=== PATIENT | female | born 1980 | race Caucasian/White ===

== ENCOUNTER 2020-07-08 14:38 | Emergency (ER) | payer OTHER, SELFPAY ==
--- NOTE | ~2020-07-08 | XR_ITS ---
EXAMINATION: XR chest 1V portable 07/08/2020 15:40 INDICATION: Shortness of breath. Chest palpitations. PROCEDURE: AP portable chest COMPARISON: No prior studies for comparison. FINDINGS: The lungs are clear. The cardiomediastinal silhouette is within normal limits. There are no pleural effusions. There is no pneumothorax suspected. IMPRESSION: 1: NO ACUTE CARDIOPULMONARY DISEASE. Reviewed, dictated and finalized at location A. MAKER APPRENTICE
[2020-07-08 14:41] VITALS: BP 131/94; PULSE 116; RESP 20; TEMP 35.5; O2SAT 100
--- NOTE | 2020-07-08 14:53 | ECG_ITS ---
Measurements Intervals [place] Rate: 93 P: 50 [place]: 117 QRS: 54 QRSD: 97 T: 44 QT: 351 QTc: 437 Interpretive Statements SINUS RHYTHM WITH SHORT [place] INTERVAL BORDERLINE ST ABNORMALITY- ANTEROLAT/INF LEADS BASELINE ARTIFACT- I, II, AVR, AVL, AVF BORDERLINE ECG Electronically Signed On 07-08-2020 15:21:30 [employer]ARDWOOD FINISHER by Clifford Ambriz D.O.
[2020-07-08 15:26] LABS: Basophils Percent Auto 0.4 % (0.2-1.2); Eosinophils Absolute Auto 0.1 K/mm3 (0-0.3); Hemoglobin 15.1 g/dL (12.0-15.0); Immature Granulocyte Absolute 0.03 K/mm3 (0.00-0.031); Immature Granulocyte Percent A 0.3 % (0-0.5); Lymphocytes Absolute Auto 2.58 K/mm3 (0.9-3.2); Lymphocytes Percent Auto 28.4 % (18.3-44.2); Mean Corpuscular HGB Conc 33.6 g/dl (32-36); Mean Corpuscular Hemoglobin 30.5 pg (26-34); Mean Corpuscular Volume 90.9 fl (80-100); Mean Platelet Volume 10.1 fl (7.4-10.4); Monocytes Absolute Auto 0.4 K/mm3 (0.1-0.6); Monocytes Percent Auto 4.4 % (2.6-8.5); Neutrophils Percent Auto 65.5 % (45.5-73.1); Platelet Count Result 291 k/mm3 (150-375); Red Blood Count 4.95 M/mm3 (4.2-5.4); Red Cell Distribution Width 12.2 % (11.5-14.5); White Blood Count 9.1 K/mm3 (4.5-10.0)
[2020-07-08 15:38] LABS: D Dimer 0.33 ug/mL (<0.48)
[2020-07-08 15:40] LABS: Anion Gap 11 mmol/L (8-16); Blood Urea Nitrogen 12 mg/dL (7-17); Calcium 8.9 mg/dL (8.4-10.2); Carbon Dioxide 24 mmol/L (22-30); Chloride 103 mmol/L (98-107); Estimated Glomerular Filt Rate > 60; Glucose 133 mg/dL (65-105); Potassium 3.2 mmol/L (3.4-5.0); Sodium 138 mmol/L (137-145)
[2020-07-08] MEDS: SODIUM CHLORIDE 0.9% IV 1,000 ML 999 ML IV CONT (15:43)
--- NOTE | 2020-07-08 16:11 | ED.GENADULT ---
HPI - General Adult General Chief complaint: Arrhythmia/Palpitations Stated complaint: dizzy Time Seen by Provider: 07/08/20 15:08 Source: patient Mode of arrival: ambulatory Limitations: no limitations History of Present Illness HPI narrative: Patient is a 40-year-old female who presents to emergency department for evaluation of feeling like her throat was tightening became very clammy and anxious just prior to arrival while at work by the time she presents to emergency department patient is feeling much better patient notes that she had had Covid earlier in the month patient states that her Covid symptoms have resolved with which consisted of only congestion patient denies any URI symptoms fever chills nausea vomiting. Patient denies any chest pain lightheadedness dizziness dyspnea. Related Data Allergies Allergy/AdvReac Type Severity Reaction Status Date / Time No Known Allergies Verified 10/05/10 08:50 Review of Systems Review of Systems: All systems reviewed & are unremarkable except as noted in HPI and below PMFSH Family History Family History (Updated 05/16/18 @ 10:08 by DOCTOR UNKNOWN) Sibling Family history of lymphoma Social History Social History Smoking status: Never smoker Alcohol intake: current Exam Narrative: Exam Narrative: GENERAL: Well-appearing, well-nourished, and in no acute distress. HEAD: Normocephalic, atraumatic. EYES: PERRLA and EOMI. ENT: Nares clear, no rhinorrhea or epistaxis. Mucous membranes moist. CHEST: Clear to auscultation. No respiratory distress. No wheezes rales or rhonchi HEART: Regular rate and rhythm. No murmur heard. Normal peripheral pulses. ABDOMEN: Soft, nontender, nondistended EXTREMITIES: Normal range of motion. No edema. SKIN: Warm, dry, no rash. NEURO: No focal deficits. Alert and oriented x3. PSYCH: Normal mood and affect. Course Course Emergency Course: Patient presented with episode of lightheadedness dizziness feeling clammy with her throat tightening upon arrival to emergency department symptoms had largely resolved patient feeling much better in the ER hemodynamically stable ABCs intact patient. Evaluated and felt appropriate for outpatient reevaluation. No high risk changes in the blood work or imaging or EKG today. Vital Signs Vital signs: Vital Signs Temperature 95.9 F L 07/08/20 14:41 Pulse Rate 116 H 07/08/20 14:41 Respiratory Rate 20 07/08/20 14:41 Blood Pressure 131/94 H 07/08/20 14:41 Pulse Oximetry 100 07/08/20 14:41 Temperature 95.9 F L 07/08/20 14:41 Pulse Rate 116 H 07/08/20 14:41 Respiratory Rate 20 07/08/20 14:41 Blood Pressure 131/94 H 07/08/20 14:41 Pulse Oximetry 100 07/08/20 14:41 Medical Decision Making MDM Narrative Medical decision making narrative: Patients EKGs and labs are without significant high risk changes. Cardiac risk factors were reviewed. Patient is felt likely to be low risk for ACS and reasonable for further risk stratification testing as an outpatient. Negative D-dimer PE felt unlikely. no pneumonia or URI symptoms were seen on evaluation today. Patient is felt to be reasonable for continued evaluation as an outpatient. Vital Signs Vital Signs: Vital Signs Temperature 95.9 F L 07/08/20 14:41 Pulse Rate 116 H 07/08/20 14:41 Respiratory Rate 20 07/08/20 14:41 Blood Pressure 131/94 H 07/08/20 14:41 Pulse Oximetry 100 07/08/20 14:41 Temperature 95.9 F L 07/08/20 14:41 Pulse Rate 116 H 07/08/20 14:41 Respiratory Rate 20 07/08/20 14:41 Blood Pressure 131/94 H 07/08/20 14:41 Pulse Oximetry 100 07/08/20 14:41 Lab Data Result diagrams: 07/08/20 15:17 07/08/20 15:17 Labs: Lab Results 07/08/20 07/08/20 07/08/20 Range/Units 15:17 15:17 15:21 WBC 9.1 (4.5-10.0) K/mm3 RBC 4.95 (4.2-5.4) M/mm3 Hgb 15.1 H (12.0-15.0) g/dL Hct 45.0 (37.0
[2020-07-08 16:19] VITALS: BP 119/77; PULSE 78; RESP 17; O2SAT 98
== END 2020-07-08 16:52 | disposition home or self-care (01) ==
PROVIDERS: Emergency Medicine Emergency Medical Services; Emergency Provider Emergency Medicine
DX: R42 Dizziness and giddiness (principal); Z86.19 Personal history of other infectious and parasitic diseases
CPT/HCPCS: 36415; 71045; 80048; 85025; 85380; 93005; 99283; 99284; J7030

== ENCOUNTER 2025-01-28 15:21 | Outpatient (CLI) | payer OTHER, SELFPAY ==
--- NOTE | ~2025-01-28 | MM_ITS ---
EXAMINATION: MM screening wendy BI w yasmin HISTORY: Screening TECHNIQUE: Craniocaudal and mediolateral oblique 3-D tomosynthesis images were obtained and synthetic 2-D images were generated. CAD analysis was submitted and interpreted. COMPARISON: No prior mammogram is available for comparison at this institution. BREAST PARENCHYMAL COMPOSITION: Dense: The breasts are heterogeneously dense, which may obscure small masses FINDINGS: There is no evidence of suspicious mass, calcification, or architectural distortion to sugg est malignancy in either breast. There has been no suspicious interval change. IMPRESSION: 1. No mammographic evidence of malignancy. 2. Recommend routine screening mammography in one year. BI-RADS Category 1: Negative Reviewed, dictated and finalized at location B.
== END 2025-01-28 15:22 | disposition home or self-care (01) ==
LOC: MICIMG 15:22
PROVIDERS: PCP Nurse Practitioner; Visit Provider Nurse Practitioner
DX: Z12.31 Encounter for screening mammogram for malignant neoplasm of breast (principal)
CPT/HCPCS: 77063; 77067

== ENCOUNTER 2025-05-22 01:08 | Day surgery (SDC) | payer OTHER, SELFPAY ==
[2025-05-16 13:21] VITALS: BMI 30.4
[2025-05-22 06:56] VITALS: BP 115/82; PULSE 91; RESP 14; TEMP 36.4; O2SAT 99
--- NOTE | 2025-05-22 07:04 | WPDANESEPPF ---
Anes - Initial Pre Proc Eval Procedure: Operation Date: 05/22/25 08:00 Proposed Procedures p EGD & Screening Colonoscopy - Hank De Oliveira MD Date/Time: 05/22/25 07:04 Surgeon: Hank De Oliveira MD Pre Op Diagnosis: Encounter for screening for malignant neoplasm of Patient Data Age: 45 Gender: F Height: 1.73 m Weight: 88.3 kg Last Vital Signs Temp 36.4 C 05/22/25 06:56 Pulse 91 05/22/25 06:56 Resp 14 05/22/25 06:56 BP 115/82 05/22/25 06:56 Pulse Ox 99 05/22/25 06:56 O2 Del Method Room Air 05/22/25 06:56 Allergies Allergy/AdvReac Type Severity Reaction Status Date / Time No Known Allergies Allergy Verified 05/22/25 06:40 Home Medications ?Medication ?Instructions ?Recorded ?Confirmed ?Type cholecalciferol (vitamin D3) 50 50 mcg PO DAILY #90 tabs 08/08/24 05/22/25 Rx mcg (2,000 unit) tablet L.acidoph,paracasei,rhamnosus 11 1 cap PO DAILY #90 caps 04/03/25 05/22/25 Rx billion cell-theanine 200 mg capsule (Florastor Woman's Probiotic) multivitamin 1 tablet PO DAILY 04/03/25 05/22/25 History vitamin B12 2,500 mcg-folic acid 1 tablet PO DAILY 04/03/25 05/22/25 History 400 mcg disintegrating tablet Patient hx anesthesia problems: none Family hx anesthesia problems: none Results Review: All pre-operative results and documents have been reviewed as part of the pre-operative evaluation. [facility] Past Medical History Medical History Plantar fascia syndrome both feet Vitamin D deficiency History of COVID-19 (~03/2023) 05/2020, 02/2022, 03/2023 Surgical History Surgical History [place] teeth extracted (~07/2023) (normal spontaneous vaginal delivery) (~09/2010) Family History Family History Sibling Family history of lymphoma Social History Social History Smoking status: Never smoker Alcohol intake: current Drinks per week: 3 Substance use: never Substance use type: does not use Do You Feel Safe in your Home?: Yes Lack of Transportation: No Lack of Food: Never True Current Housing: I Have Housing Concerned About Future Housing: No Difficulty Paying Gas/Electric Bills: No Difficulty Paying for Meds: No Currently Unemployed: No Education: Master's Degree or Higher Difficulty w/ Childcare or Family Care: No Living arrangements: with family Additional living arrangements comments: with sp Occupation/Education: occupation Gender identity (if verbalized by the patient): Female Agree to blood products: Yes Anes - Eval Final PreProcedure Day of Procedure 05/22/25 07:04 Patient weight: overweight Heart: regular rate and rhythm Lungs: clear to auscultation Airway: Mallampati scale class II Neurological: alert and oriented Last oral intake: >/= 8 hours ASA classification: II Emergent: no Anesthetic plan: proceed Anesthesia type and monitoring: general GIVS and standard monitoring Results Review: All pre-operative results and documents have been reviewed as part of the pre-operative evaluation. Informed Consent: The patient's anesthetic plan and its attendant risks and benefits were discussed with the patient/family/POA. Questions were solicited and answers provided to the satisfaction of the patient/family/POA.
[2025-05-22] MEDS: LACTATED RINGERS 1,000 ML 150 ML IV CONT (07:06)
[2025-05-22 07:52] LABS: BEDSIDEPREGUCG Negative (Negative)
--- NOTE | 2025-05-22 07:52 | WPDHPUPDATE1 ---
History and Physical Update Update Date/Time: 05/22/25 07:52 History and Physical has been reviewed, including an updated exam of the patient. There are NO changes in the patient's condition. Risks, benefits, and alternatives have been discussed and questions answered. Patient agrees to proceed with procedure.
[2025-05-22] MEDS: BENZOCAINE (*SP) 60 ML SPRAY CAN (HURRICAINE) 1 SPRAY MUCOUS MEM (08:00)
--- NOTE | 2025-05-22 08:06 | S_PTH ---
PATIENT: Elba Riley LOC: [facility] [place]#:[id number] AGE/SX: 45/F ROOM: RE05/22/[address]: Hank De Oliveira MD : 1980 BED: DIS: 05/22/2025 SPEC #: [id number] RECD: 05/22/25 10:16 STATUS: LETICIA ARMENDARIZ #: [id number] JENNIFER: 05/22/25 08:[address]: Hank De Oliveira DEPT: [facility] Surgical RECD BY: Carolyn Churchill ENTERED: 05/22/25 10:16 SP TYPE: Surgical OTHR DR: Trudy hCampion MD Tissues: A - Gastric Biopsy B - Small Bowel Bx C - Colon Polypectomy D - Colon Polypectomy E - Colon Polypectomy Procedures: Hematoxylin and Eosin Stain Gross and Microscopic Level 4
--- NOTE | 2025-05-22 08:08 | SUR.OPER ---
EGD end time: 801, Colonoscopy start time: 806
[2025-05-22 08:18] VITALS: BP 105/72; PULSE 88; RESP 21; O2SAT 97
[2025-05-22 08:28] VITALS: BP 110/70; PULSE 82; RESP 17; O2SAT 97
[2025-05-22 08:38] VITALS: BP 112/78; PULSE 73; RESP 17; O2SAT 100
== END 2025-05-22 08:44 | disposition home or self-care (01) ==
PROVIDERS: PCP Family Medicine; Referring Provider Nurse Practitioner; Visit Provider Internal Medicine Gastroenterology
PROC: 0DJ08ZZ Inspection of Upper Intestinal Tract, Via Natural or Artificial Opening Endoscopic (ICD-10-PCS; CPT 45378; principal; 2025-05-22 08:00)
DX: Z12.11 Encounter for screening for malignant neoplasm of colon (principal); D12.2 Benign neoplasm of ascending colon; D12.0 Benign neoplasm of cecum; D12.5 Benign neoplasm of sigmoid colon; K64.8 Other hemorrhoids; K21.9 Gastro-esophageal reflux disease without esophagitis; E55.9 Vitamin D deficiency, unspecified; Z98.890 Other specified postprocedural states; M72.2 Plantar fascial fibromatosis; Z80.7 Family history of other malignant neoplasms of lymphoid, hematopoietic and related tissues
CPT/HCPCS: 43239; 45385; 88305; J2003; J2704; J7120

== ENCOUNTER 2025-05-27 07:23 | Outpatient (CLI) | payer OTHER, SELFPAY ==
--- NOTE | ~2025-05-27 | NM_ITS ---
EXAMINATION: NM_HEPATWP_NM DATE: 05/27/2025 09:31 INDICATION: Cyclical epigastric pain with nausea COMPARISON: None. TECHNIQUE: 5.2 mCi Tc-99m mebrofenin (Choletec) was administered intravenously. Scintigraphic images of the abdomen were obtained for one hour. 1.8 mcg sincalide (Kinevac) was administered by slow intravenous infusion, and imaging was continued for 30 minutes. Gallbladder ejection fraction was calculated by the technologist. FINDINGS: There is normal clearance of radiotracer from the blood pool. There is homogeneous tracer uptake by the liver. Activity progresses to the gallbladder and bowel. The gallbladder ejection fraction (GBEF) is 80% (normal 10-90%, but most patient with gallbladder dysfunction have GBEF < 35% which does overlap with the normal range). IMPRESSION: 1. Normal hepatobiliary scan Reviewed, dictated and finalized at location A. MBLY DETAILER
== END 2025-05-27 07:24 | disposition home or self-care (01) ==
PROVIDERS: PCP Family Medicine; Visit Provider Nurse Practitioner
DX: R10.13 Epigastric pain (principal)
CPT/HCPCS: 78227; A9537; J2805

== ENCOUNTER 2025-06-02 06:52 | Outpatient (CLI) | payer OTHER, SELFPAY ==
--- NOTE | ~2025-06-02 | US_ITS ---
ULTRASOUND ABDOMEN LIMITED (RIGHT UPPER QUADRANT) Clinical History: epigastric pain/nausea, episodic Comparison: HIDA scan 05/27/2025 Technique: Right upper quadrant sonography Findings: Liver: Normal size. Echogenic. No intrahepatic biliary ductal dilatation. Normal hepatopedal flow main renal vein. Common Duct: Normal caliber. 3 mm. Gallbladder: Tiny stones. No wall thickening. No pericholecystic fluid. Negative sonographic Bailey's sign per technologist report. Pancreas: Unremarkable. IMPRESSION: 1. Gallstones. No cholecystitis. 2. Hepatic steatosis and/or hepatocellular disease. Reviewed, dictated and finalized at location R. [employer]ARD
== END 2025-06-02 06:53 | disposition home or self-care (01) ==
PROVIDERS: PCP Family Medicine; Visit Provider Nurse Practitioner
DX: K80.20 Calculus of gallbladder without cholecystitis without obstruction (principal); K76.9 Liver disease, unspecified
CPT/HCPCS: 76705

== ENCOUNTER 2025-07-08 08:39 | Outpatient (CLI) | payer OTHER, SELFPAY ==
[2025-07-08 09:20] LABS: Alanine Aminotransferase 18 U/L (6-35); Albumin Level 3.8 g/dL (3.5-5.1); Alkaline Phosphatase 55 U/L (38-126); Amylase 96 U/L (30-110); Aspartate Amino Transferase 22 U/L (14-36); Bilirubin,Total 0.5 mg/dL (0.2-1.3); Lipase 63 U/L (23-300); Total Protein 6.7 g/dL (6.3-8.2)
== END 2025-07-08 08:40 | disposition home or self-care (01) ==
LOC: ANHSURGERY 08:41
PROVIDERS: PCP Family Medicine; Visit Provider Surgery
DX: K80.20 Calculus of gallbladder without cholecystitis without obstruction (principal)
CPT/HCPCS: 36415; 80076; 82150; 83690

== ENCOUNTER 2025-07-14 01:46 | Day surgery (SDC) | payer OTHER, SELFPAY ==
[2025-07-07 13:07] VITALS: BMI 28.9
--- NOTE | 2025-07-07 13:13 | PC.NURSE ---
[facility] has started construction of its new state of the art ER which will open Spring 2026. With this, we anticipate parking may be a challenge for some our surgical patients and families. Parking spaces are limited but are available for all Surgical, obstetrics, and ER patients sharing this lot. If you arrive and find you are having a hard time finding a parking space, please note that we understand the challenges, please drive around the hospital and park near Hospital Entrance 1. When you enter this entrance, you can ask a volunteer to direct or take you back to the surgical waiting area to check in. We appreciate everyone?s understanding of these expected challenges while we build for your future. Report to the Outpatient Waiting Room, entrance under the green pavilion located off [address], at time _1130_ on date _[phone]_. Planned Procedure Time: _130pm_.? Time changes happen often and if your time is changed the preop area will call you the afternoon before. - You and your visitor will be asked to self-screen and do not enter if you have any COVID symptoms. Please call surgeon if you need to reschedule. - A mask is optional within the hospital at this time. Patients may have clear liquids (water, carbonated beverages, clear teas, apple juice) until 3 hours prior to surgery with a maximum of 20 ounces. - No food from midnight until time of surgery and no smoking, or chewing tobacco (or any form of nicotine). No chewing gum, candy or mints. Take only the following medications with a SIP of water on the morning of surgery: __None DO NOT STOP ANY OF YOUR OTHER PRESCRIPTION MEDICATIONS PRIOR TO SURGERY EXCEPT THE FOLLOWING Hold all vitamins and supplements for 3 days per anesthesiologist. Medications to discontinue per physician Date to take last dose Please no make-up, nail slovak, hairspray, perfume, deodorant, or body powder the day of surgery.? No jewelry (including any body piercings) or valuables the day of surgery, leave them at home.? Please take a shower or bath the night before, or the morning of, surgery with an antibacterial soap.? Wear comfortable, loose fitting clothing.? - Jewelry must be removed prior to entering the operating room.? Rings and piercings that are not removed may be cut off. - The hospital will not accept responsibility for valuables.? - Please leave all valuables, including medications, at home the day of surgery. If you are going home after surgery, a licensed flatbed truck driver must drive you home.? - NO public transportation without another adult if you receive anesthesia. - We recommend that an adult stay with you for 24 hours following discharge. - We also recommend that you do not drive, make important decision, drink alcoholic beverages, or take any drugs that were not prescribed by your health care provider for at least 24 hours after your discharge time. Follow any additional instructions given to you from your surgeon. Telephone instructions given to __Elba__and asked if any additional questions and then verbalized understanding. Patient advised to call surgeon office or pre surgery nurse liaison [phone] if any additional questions.
[2025-07-14] VITALS (9 sets, daily range): BP systolic 119–151; BP diastolic 69–82; PULSE 70–97; RESP 16; TEMP 36.2–36.3; O2SAT 99–100; BMI 28.9
--- NOTE | 2025-07-14 12:15 | WPDHPUPDATE1 ---
History and Physical Update Update Date/Time: 07/14/25 12:15 History and Physical has been reviewed, including an updated exam of the patient. There are NO changes in the patient's condition. Risks, benefits, and alternatives have been discussed and questions answered. Patient agrees to proceed with procedure.
[2025-07-14] MEDS: KETOROLAC 15 MG/ML VIAL (*BKC) IV PUSH (12:30)
[2025-07-14] MEDS: ACETAMINOPHEN 500 MG TABLET 1000 MG PO (12:30)
--- NOTE | 2025-07-14 13:18 | P.PNAN_ITS ---
Anes - Initial Pre Proc Eval Procedure: Operation Date: 07/14/25 13:30 Proposed Procedures p Laparoscopic Cholecystectomy - Sharon Florence MD Date/Time: 07/14/25 13:18 Surgeon: Sharon Florence MD Pre Op Diagnosis: symptomatic cholelithiasis Patient Data Age: 45 Gender: F Height: 1.73 m Weight: 86.4 kg Last Vital Signs Temp 36.2 C L 07/14/25 13:00 Pulse 85 07/14/25 13:00 Resp 16 07/14/25 13:00 BP 128/76 07/14/25 13:00 Pulse Ox 100 07/14/25 13:00 O2 Del Method Room Air 07/14/25 13:00 Allergies Allergy/AdvReac Type Severity Reaction Status Date / Time No Known Allergies Allergy Verified 07/07/25 13:06 Home Medications ?Medication ?Instructions ?Recorded ?Confirmed ?Type cholecalciferol (vitamin D3) 50 50 mcg PO DAILY #90 ta bs 08/08/24 07/07/25 Rx mcg (2,000 unit) tablet L.acidoph,paracasei,rhamnosus 11 1 cap PO DAILY #90 ca ps 04/03/25 07/07/25 Rx billion cell-theanine 200 mg capsule (Florastor Woman's Probiotic) multivitamin 1 tablet PO DAILY 04/03/25 1 09/07/24 History hydrocodone 5 mg-acetaminophen 325 1 tablet PO Q6H PRN pain #20 tabs 07/14/25 Rx mg tablet HCG: negative Patient hx anesthesia problems: none Family hx anesthesia problems: none Results Review: All pre-operative results and documents have been reviewed as part of the pre- operative evaluation. [facility] Past Medical History Medical History Plantar fascia syndrome both feet Vitamin D deficiency History of COVID-19 (~03/2023) 05/2020, 02/2022, 03/2023 Surgical History Surgical History [place] teeth extracted (~07/2023) (normal spontaneous vaginal delivery) (~09/2010) Family History Family History Sibling Family history of lymphoma Social History Social History Smoking status: Never smoker Alcohol intake: current Drinks per week: 8 Substance use: never Substance use type: does not use Lack of Transportation: No Lack of Food: Never True Current Housing: I Have Housing Concerned About Future Housing: No Difficulty Paying Gas/Electric Bills: No Difficulty Paying for Meds: No Currently Unemployed: No Education: Master's Degree or Higher Difficulty w/ Childcare or Family Care: No Living arrangements: with family Additional living arrangements comments: with sp Occupation/Education: occupation Gender identity (if verbalized by the patient): Female Spiritual care concerns: No Agree to blood products: Yes Anes - Eval Final PreProcedure Day of Procedure 07/14/25 13:18 Patient weight: overweight Heart: regular rate and rhythm Lungs: normal air movement Airway: Mallampati scale class II Neurological: alert and oriented Last oral intake: >/= 8 hours ASA classification: II Emergent: no Anesthetic plan: proceed Anesthesia type and monitoring: general ETT and standard monitoring Results Review: All pre-operative results and documents have been reviewed as part of the pre- operative evaluation. Informed Consent: The patient's anesthetic plan and its attendant risks and benefits were discussed with the patient/family/POA. Questions were solicited and answers provided to the satisfaction of the patient/family/POA.
[2025-07-14] MEDS: ceFAZolin 2 GM in SODIUM CHLORIDE 0.9% IV 50 ML 100 ML IVPB (13:27)
--- NOTE | 2025-07-14 13:43 | S_PTH ---
PATIENT: Elba Riley LOC: [facility] U#:[id number] AGE/SX: 45/F ROOM: RE07/14/[address]: Sharon Florence MD : 1980 BED: DIS: 07/14/2025 SPEC #: [id number] RECD: 07/15/25 07:07 STATUS: LETICIA REMeenakshi #: [id number] JNENIFER: 07/14/25 13:[address]: Sharon Florence DEPT: [facility] Surgical RECD BY: Mar Akers ENTERED: 07/15/25 07:07 SP TYPE: Surgical OTHR DR: Trudy Champion MD Tissues: A - Gallbladder Procedures: Hematoxylin and Eosin Stain Gross and Microscopic Level 3
--- NOTE | 2025-07-14 14:16 | P.OP_ITS ---
Procedure Note - Detailed Date of Procedure 07/14/25 Pre-op Diagnosis chronic cholecystitis Post-op Diagnosis Same Procedure Performed Laparoscopic cholecystectomy Surgeon Sharon Florence MD Anesthesia General Indications 45 year-old female presented to the office complaining of postprandial right upper quadrant abdominal pain associated with nausea and vomiting. Workup including imaging significant for cholecystitis, cholelithiasis. Findings chronic cholecystitis Description of Procedure The patient was taken to the operating room placed in the supine position. After adequate induction of general anesthesia, the patient was prepped and draped in normal sterile fashion. A time-out was then performed to verify the patient's identity as well as the procedure being performed. I then made a 5 mm incision in the infraumbilical region. Through this, a Veress needle was placed into the peritoneal cavity and CO2 gas was then insufflated. After adequate pneumoperitoneum was achieved, the Veress needle was removed and a 5 mm optiview trocar was placed through this incision under direct visualization. I then placed the laparoscope through this trocar site and under direct visualization placed a further 12 mm subxiphoid port as well as 2 additional 5 mm ports in the right upper abdomen. The gallbladder was then identified and was noted to be moderately inflamed and contracted. I was able to place a grasper at the dome of the gallbladder and this was retracted anterior and cephalad up over the liver. A 2nd retractor was then placed at the infundibulum and retracted laterally, this allowed visualization of the triangle of Calot. I then was able to visualize the cystic duct in its entirety from its proximal insertion into the gallbladder, to its distal junction with the common hepatic/common bile duct junction. At this point, I carefully skeletonized the proximal cystic duct with the [place] dissector. I then clipped and transected the proximal cystic duct. Next I visualized the cystic artery. Again the artery was skeletonized, clipped, and transected. I then used the Bovie cautery to take down the peritoneal attachments of the gallbladder off the liver bed. This was somewhat difficult given the amount of inflammation in the posterior space. Once the gallbladder specimen was completely detached, an endo-pouch was placed through the 12 mm port site. I then placed the gallbladder specimen into the Endo pouch and removed the endo-pouch from the 12 mm port site. The specimen will now be sent to pathology for further review. I then copiously irrigated the right upp er quadrant. Some mild oozing was noted in the liver bed and this was controlled with the bovie cautery. Hemostasis was noted in the liver bed, the clips were noted to be in good position on both the cystic duct stump and the cystic artery stump. No other pathology was noted in the right upper quadrant. I then moved the laparoscope to the subxiphoid port. No iatrogenic injury or other pathology was noted in the lower abdomen. I then closed the 12 mm trocar site under direct visualization using the Christopher cone and 0 Vicryl suture. At this point, the abdomen was desufflated and all ports removed. All port sites were then closed with 4.O Monocryl subcuticular sutures. Dermabond was placed on each incision. The patient tolerated the procedure well, was extubated in the operating room postoperative and will be transferred to the recovery room in stable condition Estimated Blood Loss 10 Drains No Packing No Pathology Yes Complications No immediate complications Condition Stable Disposition PACU [facility] Billing Surgery - Charge Forward: Surgery Billing
[2025-07-14] MEDS: LACTATED RINGERS 1,000 ML 30 ML IV CONT ×2 (14:20)
[2025-07-14] MEDS: oxyCODONE HCL (*CRX) 5 MG TAB IR PO (15:14)
== END 2025-07-14 15:55 | disposition home or self-care (01) ==
PROVIDERS: PCP Family Medicine; Visit Provider Surgery
PROC: 0FT44ZZ Resection of Gallbladder, Percutaneous Endoscopic Approach (ICD-10-PCS; CPT 47562; principal; 2025-07-14 13:30)
DX: K80.10 Calculus of gallbladder with chronic cholecystitis without obstruction (principal)
CPT/HCPCS: 47562; 88304; J0690; A9270; J1100; J1885; J2003; J2250; J2405; J2704; J3010; J7120